=== PATIENT | male | born 1945 | race Caucasian/White ===

== ENCOUNTER 2017-11-26 08:00 | Outpatient (RCR) | payer OTHER, SELFPAY ==
--- NOTE | 2017-11-04 09:59 | PTTR_ITS ---
DATE: 11/04/17 SUBJECTIVE: Pt reports that ther ex is difficult for him but he know that it is helpful. OBJECTIVE: Manual therapy: ([id number]). Pt received single knee to chest, IR/ER while supine in 90/90, and adductor stretching. Pt then transitioned into the prone position and received stretching to the quad and IR/ER of the hip. Therapeutic procedures ([id number]). * X Provided skilled instruction in proper exercise performance: Pt completed LE strengthening, glute strengthening, functional sit to stands, core strengthening, wobble board, and cardio as per flow sheet. Direct treatment time: 30 Total treatment time: 40
--- NOTE | 2017-11-08 09:32 | PTTR_ITS ---
DATE: 11/08/17 OBJECTIVE: Manual therapy: ([id number]). Pt received single knee to chest stretching, stretching of the adductors, and IR/ER stretching. Pt then transitioned into the prone position and received stretching to the quad and IR/ER of the hip. Therapeutic procedures ([id number]). * X Provided skilled instruction in proper exercise performance: Pt completed open and closed chain LE strengthening, glute strengthening, functional sit to stands, and cardio as per flow sheet. Direct treatment time: 30 Total treatment time: 45
--- NOTE | 2017-11-11 10:01 | PTTR_ITS ---
DATE: 11/11/17 SUBJECTIVE: Pt reports that he cont to feels as though he is making progress. OBJECTIVE: Manual therapy: ([id number]). Pt received single knee to chest, adductor stretching, and IR/ER of the hip while in supine. Pt then transitioned into the prone position and received stretching of his quad and IR/ER. Therapeutic procedures ([id number]). * X Provided skilled instruction in proper exercise performance: Pt completed open and closed chain LE strengthening, functional sit to stands without the use of his hands, glute strengthening, proprioceptive ther ex. and cardio as per flow sheet. Pt completed a portion of his session with the wellness please see flow sheet for specifics. Direct treatment time: 30 Total treatment time: 45
--- NOTE | 2017-11-26 08:54 | PTTR_ITS ---
DATE: 11/26/17 SUBJECTIVE: Pt reports that he was on vacation so he did a lot of walking. OBJECTIVE: Manual therapy: ([id number]). Pt received single knee to chest, adductor stretching, IR/ER stretching. Pt then transitioned into the prone position and received stretching to the quad, IR, and ER of the hip. Therapeutic procedures ([id number]). * X Provided skilled instruction in proper exercise performance: Pt completed core stabilization ther ex, glute strengthening, functional sit to stands, wobble board, open and closed chain LE strengthening, and cardio on the Nu Step. Pt did require tactile cueing for correction of his mechanics with his ther ex. Direct treatment time: 30 Total treatment time: 40
== END 2017-12-03 23:59 | disposition home or self-care (01) ==
LOC: PT 08:00
PROVIDERS: Referring Provider Orthopaedic Surgery; Visit Provider Orthopaedic Surgery
DX: Z47.1 Aftercare following joint replacement surgery (principal); Z96.641 Presence of right artificial hip joint
CPT/HCPCS: 97110; 97140